=== PATIENT | male | born 1970 | race Caucasian/White ===

== ENCOUNTER → 2022-06-13 | Outpatient (CLI) | payer BC ==
[~2022-06-13] MED LIST: FAMO20 PO; HYDACE5 PO; LORA10ER PO; NEOPOLHCSU OT
== END | disposition home or self-care (01) ==
LOC: LAB SHORT 14:09 → LAB 14:09
DX: L08.9 Local infection of the skin and subcutaneous tissue, unspecified (principal)
CPT/HCPCS: 87070; 87077; 87147; 87186; 87205